=== PATIENT | female | born 1945 | race Caucasian/White ===

== ENCOUNTER 2017-09-13 13:18 | Outpatient (CLI) | payer MEDICARE ==
--- NOTE | 2017-09-13 18:12 | XRAY Report ---
RIGHT RIBS WITH FRONTAL CHEST: 09/13/2017 CLINICAL INDICATION: Chronic pain. FINDINGS: Frontal view of the chest and oblique views of the right ribs were obtained, with a marker at the site of maximal tenderness. There is no evidence of a displaced rib fracture. The cardiac silhouette is within normal limits. The lungs are clear. Postoperative changes are noted in the right breast. No effusion or pneumothorax is seen. IMPRESSION: NO EVIDENCE OF A DISPLACED RIGHT RIB FRACTURE. NO EVIDENCE OF ACUTE CARDIOPULMONARY DISEASE. TD: 09/13/2017 18:11
== END 2017-09-13 13:19 | disposition home or self-care (01) ==
LOC: DI 13:18
PROVIDERS: ATTEND Internal Medicine
DX: R07.81 Pleurodynia (principal); G89.29 Other chronic pain

== ENCOUNTER 2018-03-13 12:33 | Emergency (ER) | payer MEDICARE ==
[2018-03-13 13:06] LABS: BASOPHILS # (AUTO) 0.1 10^3/uL (0.0-0.1); BASOPHILS % (AUTO) 1.2 %; EOSINOPHILS # (AUTO) 0.2 10^3/uL (0.0-0.7); EOSINOPHILS % (AUTO) 3.8 %; HGB - HEMOGLOBIN 12.5 g/dL (12.0-16.0); LYMPHOCYTES # (AUTO) 1.8 10^3/uL (1.5-3.5); LYMPHOCYTES % (AUTO) 29.8 %; MEAN CORPUSCULAR HEMOGLOBIN 31.9 pg (27.0-31.0); MEAN CORPUSCULAR HGB CONC 34.5 g/dL (32.0-36.0); MEAN CORPUSCULAR VOLUME 92.5 fL (81.0-99.0); MEAN PLATELET VOLUME 7.7 fL (7.9-10.8); MONOCYTES # (AUTO) 0.6 10^3/uL (0.0-1.0); MONOCYTES % (AUTO) 9.2 %; NEUTROPHILS # (AUTO) 3.4 10^3/uL (1.5-6.6); PLT - PLATELET COUNT 248 10^3/uL (130-450); RED BLOOD COUNT 3.93 10^6/uL (4.20-5.40); RED CELL DISTRIBUTION WIDTH 13.4 % (12.0-15.0)
[2018-03-13 13:19] LABS: ALBUMIN 3.8 g/dL (3.2-5.5); ALBUMIN/GLOBULIN RATIO 1.2 (1.0-2.2); BILIRUBIN,TOTAL 0.8 mg/dL (0.2-1.0); CALCIUM 8.6 mg/dL (8.5-10.3); CREATININE 0.8 mg/dL (0.4-1.0)
--- NOTE | 2018-03-13 13:27 | XRAY Report ---
Reason: chest pain Procedure Date: 03/13/2018 Accession Number: [id number] / [id number] Procedure: XR - Chest 1 View X-Ray CPT Code: 91319 FULL RESULT: EXAM: CHEST RADIOGRAPHY EXAM DATE: 03/13/2018 01:17 PM. CLINICAL HISTORY: Chest pain. COMPARISON: 09/13/2017. TECHNIQUE: 1 view. FINDINGS: Lungs/Pleura: No focal consolidation. No edema. No pleural effusion. No pneumothorax. Mediastinum: The heart is mildly enlarged. Other: None. IMPRESSION: No acute findings. Mild cardiomegaly. RADIA
--- NOTE | 2018-03-13 13:29 | ED Physician Documentation ---
PD HPI CHEST PAIN - Stated complaint Stated Complaint: CHEST PX - Chief complaint Chief Complaint: Cardiac - History obtained from History obtained from: Patient - History of Present Illness Timing - onset: Yesterday Timing - details: Still present Pain level now: 6 Quality: Sharp Location: Left chest Worsened by: Inspiration, Movement, Palpation Associated symptoms: Cough Similar symptoms before: Has not had sx before - Additional information Additional information: The patient is a 73-year-old female who presents with left anterior chest pain that is exacerbated with movement of her left shoulder. The pain started early yesterday morning and has been persistent since that time. It is worse with movement, palpation, cough, or respiratory inspiration. It is better when lying still. She reports having a cough for nearly 2 months, and it has caused irritation in her throat. She denies fever, diaphoresis, shortness of breath, nausea or vomiting. She denies history of similar symptoms in the past. Review of Systems Constitutional: denies: Fever, Fatigue Ears: denies: Tinnitus/ringing Nose: denies: Congestion Throat: reports: Sore throat (Mildly irritated.) Cardiac: reports: Chest pain / pressure. denies: Palpitations Respiratory: reports: Cough. 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, Other HEENT: Tonsil/Adenoidectomy - Present Medications Home Medications: Ambulatory Orders Medication Instructions Recorded Confirmed Aspirin 1 tab DAILY PRN 09/12/14 09/12/14 Estrogens, Conjugated [Premarin] 09/12/14 09/12/14 Lisinopril 10 mg PO DAILY #30 tablet 09/12/14 Benzonatate [Tessalon] 100 mg PO TID #15 capsule 03/13/18 - Allergies Allergies/Adverse Reactions: Allergies Allergy/AdvReac Type Severity Reaction Status Date / Time Sulfa (Sulfonamide Allergy Severe Rash Verified 03/13/18 12:39 Antibiotics) cillins Allergy Intermediate Itching Uncoded 03/13/18 12:39 - Social History Does the pt smoke?: No Smoking Status: Never smoker Does the pt drink ETOH?: Yes PD ED PE NORMAL - Vitals Vital signs reviewed: Yes (systolic hypertension initially.) - General General: Alert and oriented X 3, Well developed/nourished, Other (Appears younger than her stated age.) - HEENT HEENT: Atraumatic, Pharynx benign - Neck Neck: No adenopathy, No JVD - Cardiac Cardiac: RRR, No murmur - Respiratory Respiratory: No respiratory distress, Clear bilaterally, Other (There is tenderness to palpation of the intercostal musculature on the left anterior and axillary chest. This reproduces her pain.) - Abdomen Abdomen: Soft, Non tender - Back Back: No CVA TTP - Derm Derm: No rash - Extremities Extremities: No edema, No calf tenderness / cord - Neuro Neuro: Alert and oriented X 3, No motor deficit, Normal speech Results - Vitals Vitals: Vital Signs - 24 hr 03/13/18 03/13/18 12:36 13:50 Temperature 36.5 C 36.8 C Heart Rate 64 63 Respiratory 18 18 Rate Blood Pressure 156/81 H 122/79 O2 Saturation 98 95 Oxygen O2 Source Room air - EKG (time done) 12:46 Rate: Rate (enter#) (62) Rhythm: NSR Castor: Normal Intervals: LBBB Compare to prior EKG: Unchanged from prior EKG Computer interpretation: Agree with computer - Labs Labs: Laboratory Tests 03/13/18 03/13/18 03/13/18 12:58 12:58 12:58 WBC 6.0 RBC 3.93 L Hgb 12.5 Hct 36.3 L MCV 92.5 MCH 31.9 H MCHC 34.5 RDW 13.4 Plt Count 248 MPV 7.7 L Neut # (Auto) 3.4 Lymph # (Auto) 1.8 [place] # (Auto) 0.6 Eos # (Auto) 0.2 Baso # (Auto) 0.1 Absolute Nucleated RBC 0.00 Nucleated RBC % 0.0 Sodium 136 Potassium 3.8 Chloride 100 L Carbon Dioxide 27 Anion Gap 9.0 BUN 12 Creatinine 0.8 Estimated GFR (MDRD) 71 L Glucose 105 H Calcium 8.6 Total Bilirubin 0.8 AST 34 ALT 23 Alkaline Phosphatase 108 Troponin I < 0.04 Total Protein 7.0 Albumin 3.8 Globulin 3.2 Albumin/Globulin Ratio 1.2 Lipase 33 - Rads (name of study) CXR Radiology: Prelim report reviewed, EMP read contemporaneously, See rad report (Mild cardiomegaly. No acute cardiopulmonary findings.) PD MEDICAL DECISION MAKING - ED course Complexity details: reviewed old records, reviewed results, re-evaluated patient, considered differential, d/w patient ED course: The patient's presentation is most consistent with costochondral chest pain. I doubt cardiac ischemia given her greater than 24 hours of symptoms with an unchanged EKG and normal cardiac enzymes. The underlying cause of her prolonged cough is unclear at this time. Chest x-ray reveals no acute cardiopulmonary abnormality. White blood cell count is normal. There is no evidence to suggest pneumonia, pneumothorax, and I doubt pulmonary embolus. Treatment in the emergency department included administration of ibuprofen 800 mg orally. She is being discharged with a prescription for Tessalon. I discussed with her the diagnosis, symptomatic treatment and outpatient follow- up, as well as potentially worrisome signs or symptoms that should prompt reevaluation in the emergency department. Departure - Departure Disposition: 01 Home, Self Care Clinical Impression: Costochondral chest pain, Left bundle branch block (LBBB) Condition: Stable Instructions: ED Chest Pain Costochondritis Follow-Up: Theron Kennedy MD [Provider Admit Priv/Credential] - Prescriptions: Benzonatate [Tessalon] 100 mg PO TID #15 capsule Comments: You can use ibuprofen, up to 800 mg 3 times daily for its anti-inflammatory effect. Take Tessalon as prescribed if needed for cough. Follow-up with your primary physician within 1-2 weeks. Call to schedule appointment. Return to the emergency department if you develop increasing chest pain, shortness of breath, or otherwise worsening symptoms. Discharge Date/Time: 03/13/18 13:57
[2018-03-13] MEDS ORDERED: IBUPROFEN 800 MG TABLET PO STA (13:42)
[2018-03-13 13:51] VITALS: BP 122/79
== END 2018-03-13 13:57 | disposition home or self-care (01) ==
LOC: ED 12:33
DX: R07.1 Chest pain on breathing (principal); I44.7 Left bundle-branch block, unspecified; Z79.82 Long term (current) use of aspirin
CPT/HCPCS: 36415; 71045; 80053; 83690; 84484; 85025; 93005; 99283; 99284; A9270

== ENCOUNTER 2018-08-22 13:27 | Outpatient (CLI) | payer MEDICARE, OTHER ==
--- NOTE | 2018-08-25 13:11 | DEXA Report ---
Reason: POSTMENOPAUSAL STATE Procedure Date: 08/22/2018 Accession Number: [id number] / [id number] Procedure: DEX - Dexa Spine and/or Hip CPT Code: FULL RESULT: EXAM: Dexa Spine and/or Hip DATE: 08/22/2018 2:05 PM CLINICAL HISTORY: POSTMENOPAUSAL STATE TECHNIQUE: Dual energy x-ray absorptiometry (DXA) was performed on a [employer] System. Regions measured are the AP Spine, femoral neck, and if needed forearm. COMPARISON: None. In accordance with the International Society for Clinical Densitometry (ISCD) guidelines, data from previous exams may be reanalyzed using current recommendations and techniques. This is done to allow a more accurate basis for comparison with the current study. FINDINGS: The data for the lumbar spine is as follows: BMD (g/cm/cm) T-SCORE Z-SCORE REGION L1 1.025 -0.9 0.3 L2 1.149 -0.4 0.7 L3 1.063 -1.1 0.0 L4 1.082 -1.0 0.2 TOTAL 1.081 -0.8 0.3 NOTE: All evaluable vertebrae are used for classification The data for the hip is as follows: BMD (g/cm/cm) T-SCORE Z-SCORE REGION Neck 0.845 -1.4 0.0 TOTAL 0.950 -0.5 0.7 NOTE: The femoral neck or total proximal femur, whichever is lowest, is used for classification. IMPRESSION: THE WHO CLASSIFICATION BASED ON THE INTERNATIONAL REFERENCE STANDARD IS OSTEOPENIA. THE FRACTURE RISK IS INCREASED. RECOMMENDATION: Patients with diagnosis of osteoporosis or osteopenia should have regular bone mineral density assessment. For those eligible for Medicare, routine testing is allowed once every 2 years. Testing frequency can be increased for patients who have rapidly progressing disease or for those who are receiving medical therapy to restore bone mass. COMMENT: World Health Organization (WHO) definitions for osteoporosis and osteopenia: NORMAL BMD: T-score at -1.0 or higher, fracture risk is low OSTEOPENIA BMD: T-score between -1.0 and -2.5, fracture risk is increased. OSTEOPOROSIS BMD: T-score at -2.5 or lower, fracture risk is high. National Osteoporosis Foundation recommends: 1. Obtain adequate dietary calcium (at least 1200 mg per day) and vitamin D (400-800 international units per day). 2. Participate, as appropriate, in regular weightbearing and muscle-strengthening exercise. 3. Avoid tobacco use and reduce alcohol and caffeine intake. 4. For more detailed information see the website at www.NOF.org.
== END 2018-08-22 13:28 | disposition home or self-care (01) ==
LOC: DI 13:27
PROVIDERS: ATTEND Internal Medicine
DX: M85.88 Other specified disorders of bone density and structure, other site (principal)
CPT/HCPCS: 77080

== ENCOUNTER 2021-05-03 08:40 | Emergency (ER) | payer MEDICARE, OTHER ==
[2021-05-03] MEDS ORDERED: DEXAMETHASONE 10 MG/ML VIAL PO STA (10:07)
[2021-05-03] MEDS ORDERED: CHERRY SYRUP 10 ML UDC PO ONE (10:07)
[2021-05-03] MEDS ORDERED: KETOROLAC 30 MG/ML VIAL IM STA (10:07)
--- NOTE | 2021-05-03 10:09 | ED Physician Documentation ---
PD HPI UPPER EXT INJURY - Stated complaint Stated Complaint: R SHOULDER PX - Chief complaint Chief Complaint: Ext Problem - History obtained from History obtained from: Patient - History of Present Illness Location: Right, Shoulder Type of injury: Other (over use making zana cards) Where injury occurred: Home Timing - onset: How many days ago (4) Timing - duration: Days (4) Timing - details: Gradual onset, Still present Improved by: Rest, Immobilization Worsened by: Moving, Palpating Associated symptoms: No: Weakness, Numbness, Tingling, Swelling Contributing factors: No: Anticoagulated Similar symptoms before: Has not had sx before Recently seen: Not recently seen - Additonal information Additional information: 76-year-old female has developed pain in her right shoulder that is become severe as time is gone on. She states that she has been using her right arm a lot making her [place] cards squeezing out some glitter out of a bottle and her arm is become more more painful. She is now unable to move her arm without significant pain right over the shoulder. She has not had this happen to her previous. 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, Other HEENT: Tonsil/Adenoidectomy - Present Medications Home Medications: Ambulatory Orders Medication Instructions Recorded Confirmed Aspirin 1 tab DAILY PRN 09/12/14 09/12/14 Estrogens, Conjugated [Premarin] 09/12/14 09/12/14 lisinopriL [Lisinopril] 10 mg PO DAILY #30 tablet 09/12/14 Benzonatate [Tessalon] 100 mg PO TID #15 capsule 03/13/18 - Allergies Allergies/Adverse Reactions: Allergies Allergy/AdvReac Type Severity Reaction Status Date / Time Sulfa (Sulfonamide Allergy Severe Rash Verified 03/13/18 12:39 Antibiotics) cillins Allergy Intermediate Itching Uncoded 03/13/18 12:39 - Social History Does the pt smoke?: No Smoking Status: Never smoker Does the pt drink ETOH?: Yes PD ED PE NORMAL - Vitals Vital signs reviewed: Yes (Hypertensive) - General General: Alert and oriented X 3, No acute distress, Well developed/nourished - HEENT HEENT: Atraumatic, PERRL, EOMI - Neck Neck: Supple, no meningeal sign, No bony TTP - Respiratory Respiratory: No respiratory distress - Derm Derm: Normal color, Warm and dry, No rash - Extremities Extremities: No deformity, No edema, Other (tenderness to the right deltoid anterior and posterior and marked pain with movement. 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 Rotator cuff calcific tendinopathy.), EMP read indepedently, See rad report PD MEDICAL DECISION MAKING - ED course Complexity details: reviewed results, re-evaluated patient, considered differential, d/w patient ED course: 76-year-old female with overuse of her right shoulder has pain in the right shoulder and she has calcific tendinitis on x-ray examination. She is administered dexamethasone 10 mg orally and 30 mg of Toradol IM. She has some improvement in her pain while she is here. Departure - Departure Disposition: 01 Home, Self Care Clinical Impression: Calcific tendonitis of right shoulder Condition: Stable Instructions: ED Tendinitis Calcific Follow-Up: Theron Kennedy MD [Primary Care Provider] - Comments: Lesly, today it appears you have some calcific tendinitis in your right shoulder. This is an overuse injury and reduction in the amount of use of your shoulder is imperative for healing. It is also imperative for you to have some movement of your shoulder and the recommendation is to remove the shoulder from the sling 4-5 times per day for range of motion. Discharge Date/Time: 05/03/21 11:17
--- NOTE | 2021-05-03 10:36 | XRAY Report ---
PROCEDURE: Shoulder 3 View RT INDICATIONS: pain no movement TECHNIQUE: 3 views of the shoulder were acquired. COMPARISON: None. FINDINGS: BONES: No acute, displaced fracture. The joint spaces are maintained. SOFT TISSUES: No appreciable pneumothorax. Calcific density overlies the humeral head, most consiste nt with calcific tendinopathy. IMPRESSION: 1.Rotator cuff calcific tendinopathy. Reviewed by: Junito Zelaya MD on 05/03/2021 10:34 AM [facility] Approved by: Junito Zelaya MD on 05/03/2021 10:34 AM [facility] Station ID: [id number]
[2021-05-03 11:17] VITALS: BP 150/62
== END 2021-05-03 11:17 | disposition home or self-care (01) ==
LOC: ED 08:40
DX: M75.31 Calcific tendinitis of right shoulder (principal)
CPT/HCPCS: 73030; 96372; 99283; A9270

== ENCOUNTER 2021-10-12 06:45 | Outpatient (CLI) | payer MEDICARE, OTHER ==
--- NOTE | 2021-10-12 10:42 | Ultrasound Report ---
PROCEDURE: Abdomen Complete INDICATIONS: RIGHT UPPER QUAD PAIN, RIGHT KNEE PAIN TECHNIQUE: Real-time scanning was performed of the abdominal and retroperitoneal organs, with image documentatio n. COMPARISON: None. FINDINGS: Liver: Normal size of the liver. Diffusely increased hepatic parenchymal echogenicity. No focal hepat ic mass. Gallbladder: Normally distended gallbladder. No wall thickening or pericholecystic fluid. No sludge o r gallstone. Biliary ducts: Normal caliber intrahepatic and extrahepatic biliary ducts Pancreas: Visualized porti ons of the pancreas are sonographically normal. Spleen: Spleen is normal in size and homogeneous in echotexture. Kidneys: Normal size and appearance of both kidneys. Aorta: Visualized aorta is normal in caliber at less than 3 cm. Iliacs: Obscured by bowel gas. IVC: Intrahepatic inferior vena cava is patent. Miscellaneous: No free abdominal fluid. IMPRESSION: Increased hepatic parenchymal echogenicity which most likely represents hepatic steatosis although ot her diffuse hepatocellular disorder such as hepatitis could cause a similar appearance. Reviewed by: George Rueda MD on 10/12/2021 10:41 AM PDT Approved by: George Rueda MD on 10/12/2021 10:41 AM PDT Station ID: [id number]
--- NOTE | 2021-10-12 15:47 | XRAY Report ---
PROCEDURE: Knee 3 View RT INDICATIONS: RIGHT UPPER QUAD PAIN, RIGHT KNEE PAIN TECHNIQUE: 3 views of the right knee(s) were acquired. COMPARISON: None. FINDINGS: Bones: No fractures or dislocations. No suspicious bony lesions. Moderate tricompartmental arthrit ic change slightly more prominent medially. Minimal paratracheal or osteophytes are present. No erosi ons. Soft tissues: No joint effusion. No suspicious soft tissue calcifications. IMPRESSION: Tricompartmental arthritic changes above. Reviewed by: Mehnaz Sweeney MD on 10/12/2021 3:45 PM PDT Approved by: Mehnaz Sweeney MD on 10/12/2021 3:45 PM PDT Station ID: [id number]
== END 2021-10-12 06:46 | disposition home or self-care (01) ==
LOC: DI 06:45
PROVIDERS: ATTEND Internal Medicine
DX: R10.11 Right upper quadrant pain (principal); M17.11 Unilateral primary osteoarthritis, right knee

== ENCOUNTER 2022-05-22 18:21 | Outpatient (CLI) | payer MEDICARE, OTHER ==
--- NOTE | 2022-05-23 11:59 | XRAY Report ---
PROCEDURE: Lumbar Spine 2 View INDICATIONS: LUMBAR BACK PAIN TECHNIQUE: 3 views of the lumbar spine were acquired. COMPARISON: None. FINDINGS: Bones: 5 [id number] vertebrae are present. Mild left convexity curvature centered at L3. Mild m ultilevel degenerative changes with disc height loss, endplate spurring, and facet arthropathy. No vertebral body compression fractures. No suspicious bony lesions. Soft tissues: Overlying bowel gas pattern is normal. No suspicious soft tissue calcifications. IMPRESSION: 1. No acute lumbar spine fracture visualized radiographically. 2. Mild multilevel degenerative changes of the lumbar spine. Reviewed by: Kameron Phan MD on 05/23/2022 11:57 AM PST Approved by: Kameron Phan MD on 05/23/2022 11:57 AM PST Station ID: [id number]
== END 2022-05-22 18:22 | disposition home or self-care (01) ==
LOC: DI.S 18:21
PROVIDERS: ATTEND Registered Nurse
DX: M47.816 Spondylosis without myelopathy or radiculopathy, lumbar region (principal)

== ENCOUNTER 2022-06-02 12:53 | Emergency (ER) | payer MEDICARE, OTHER ==
--- OUTSIDE RECORDS SUMMARY | 2022-06-02 13:19 | EXTERNAL MEDICAL SUMMARY RPT | Continuity of Care Document ---
:1945 Author Organization [facility] Address [address] [place] [address] Phone Care Team Providers Name Role Phone Unavailable Unavailable Unavailable Naina Guzman Robert Unavailable Unavailable Ge Patient Registrar, Demetrice Unavailable Unavai lable Allergies and Intolerances date description facility type (no date) SULFA [facility] (no date) AMOXICILLIN [facility] Encounters No information. Functional Status No information. Immunizations No information. Medications date description facility 2022-05-22 00:00 methylprednisolone [facility] 2022-05-22 00:00 hydrochlorothiazide [facility] 2022-05-23 00:00 hydrochlorothiazide [facility] 2022-05-24 00:00 hydrochlorothiazide [facility] 2022-05-22 00:00 lisinopril [facility] 2022-05-23 00:00 lisinopril [facility] 2022-05-24 00:00 lisinopril [facility] 2022-05-22 00:00 methocarbamol [facility] 2022-05-22 00:00 methylprednisolone [facility] 2022-05-22 00:00 methocarbamol [facility] 2022-05-22 00:00 methylprednisolone [facility] 2022-05-22 00:00 lisinopril [facility] 2022-05-23 00:00 lisinopril [facility] 2022-05-24 00:00 lisinopril [facility] 2022-05-22 00:00 DEXAMETHASONE SODIUM PHOSPHATE [facility] 2022-05-22 00:00 lisinopril [facility] 2022-05-23 00:00 lisinopril [facility] 2022-05-24 00:00 lisinopril [facility] 2022-05-22 00:00 methocarbamol [facility] 2022-05-22 00:00 lisinopril [facility] 2022-05-23 00:00 lisinopril [facility] 2022-05-24 00:00 lisinopril [facility] 2022-05-22 00:00 hydrochlorothiazide [facility] 2022-05-23 00:00 hydrochlorothiazide [facility] 2022-05-24 00:00 hydrochlorothiazide [facility] 2022-05-22 00:00 hydrochlorothiazide [facility] 2022-05-23 00:00 hydrochlorothiazide [facility] 2022-05-24 00:00 hydrochlorothiazide [facility] 2022-05-22 00:00 methocarbamol [facility] 2022-05-22 00:00 methylprednisolone [facility] 2022-05-22 00:00 KETOROLAC TROMETHAMINE [facility] 2022-05-22 00:00 hydrochlorothiazide [facility] 2022-05-23 00:00 hydrochlorothiazide [facility] 2022-05-24 00:00 hydrochlorothiazide [facility] Problems date description facility 2022-05-22 00:00 No current problems or disability [facility] 2022-05-22 00:00 Low back pain [facility] 2022-05-22 00:00 Lumbago [facility] 2022-05-22 00:00 Low back pain, unspecified [facility] Procedures date description facility 2022-05-22 00:00 Visit Code Hold [facility] 2022-05-22 00:00 XR LUMBAR SPINE 2 OR 3 VIEW [facility] Results/Labs No information. Social History date description facility 2022-05-22 00:00 Unknown if ever smoked [facility] 2022-05-23 00:00 Unknown if ever smoked [facility] 2022-05-24 00:00 Unknown if ever smoked [facility] Vital Signs date measurement value units 2022-05-22 00:00 BMI 27.88 kg/m2 2022-05-22 00:00 BP_diastolic 77 mmHg 2022-05-22 00:00 BP_systolic 174 mmHg 2022-05-22 00:00 heart_rate 60 /min 2022-05-22 00:00 height_metric 171.45 cm 2022-05-22 00:00 height_standard 67.5 in 2022-05-22 00:00 respiration_rate 18 /min 2022-05-22 00:00 temperature_metric 36.67 C 2022-05-22 00:00 temperature_standard 98 F 2022-05-22 00:00 weight_metric 81.65 kg 2022-05-22 00:00 weight_standard 180 lb
[2022-06-02] MEDS ORDERED: KETOROLAC 30 MG/ML VIAL IM STA (13:22)
--- NOTE | 2022-06-02 13:24 | ED Physician Documentation ---
History of Present Illness - Stated complaint Stated Complaint: BACK PX - Chief complaint Chief Complaint: Back Pain - Additonal information Additional information: 77-year-old female presents to the emergency department for evaluation of 2 w eeks left sided back pain without radiation. It began after she moved a coffee table and did some yoga the night before. However she does not remember anything hurting while doing yoga but the next morning when getting out of bed she found pain in her low back. She did go to our local walk-in clinic for which she received an injection of the medicine and was put on a 6-day Medrol Dosepak. She felt initially was improving her symptoms but since then the pain has continued. No fevers. No saddle anesthesia. No loss of bowel or bladder function. 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 Denies night sweats or weight loss. She has taken some ibuprofen and Tylenol intermittently without relief of symptoms. Pain is present really only when changing positions such as going from laying to standing or sitting to standing. No pain with ambulation History provided by patient. Good historian Review of Systems Constitutional: denies: Fever, Chills Respiratory: reports: Reviewed and negative GI: reports: Reviewed and negative : reports: Reviewed and negative Musculoskeletal: reports: Back pain. 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 TITLES: Hysterectomy, Other HEENT: Tonsil/Adenoidectomy - Present Medications Home Medications: Ambulatory Orders Medication Instructions Recorded Confirmed Aspirin 1 tab DAILY PRN 09/12/14 09/12/14 Estrogens, Conjugated [Premarin] 09/12/14 09/12/14 lisinopriL [Lisinopril] 10 mg PO DAILY #30 tablet 09/12/14 Benzonatate [Tessalon] 100 mg PO TID #15 capsule 03/13/18 - Allergies Allergies/Adverse Reactions: Allergies Allergy/AdvReac Type Severity Reaction Status Date / Time Sulfa (Sulfonamide Allergy Severe Rash Verified 06/02/22 13:07 Antibiotics) cillins Allergy Intermediate Itching Uncoded 06/02/22 13:07 - Social History Does the pt smoke?: No Smoking Status: Never smoker Does the pt drink ETOH?: Yes PD ED PE NORMAL - General General: Alert and oriented X 3, No acute distress - HEENT HEENT: PERRL - Cardiac Cardiac: RRR, No murmur - Respiratory Respiratory: No respiratory distress, Clear bilaterally - Abdomen Abdomen: Normal bowel sounds, Soft - Back Back: No CVA TTP, No spinal TTP, Other (Mild tenderness with palpation of the deep left lower paraspinous muscles. Negative straight leg bilaterally. Normal gait. Motor strength is 5 of 5. Patient is able to stand on heels and walk on tiptoes) - Derm Derm: Normal color, Warm and dry, No rash - Extremities Extremities: No deformity, No tenderness to palpate, Normal ROM s pain - Neuro Neuro: Alert and oriented X 3, biometrics analyst 2-12 intact Eye Opening: Spontaneous Motor: Obeys Commands Verbal: Oriented GCS Score: 15 Results - Vitals Vitals: Vital Signs - 24 hr 06/02/22 12:59 Temperature 37.1 C Heart Rate 93 Respiratory 18 Rate Blood Pressure 151/68 H O2 Saturation 99 Oxygen O2 Source Room air PD Medical Decision Making - ED course Complexity details: reviewed results, re-evaluated patient, considered differential, d/w patient ED course: This is a well-appearing 77-year-old female that presents to the emergency department for 2 weeks of left-sided low back pain without radiation. The pain is particularly worse when changing positions such as when going from sitting to standing or lying and getting out of bed. She denies any falls or trauma. She was seen at a local walk-in clinic and completed a 6-day course of methylprednisolone. Initially she felt her symptoms were getting better but they returned once she completed the steroids. She is had no fevers, saddle anesthesia or loss of bowel or bladder function. However she does have a history of previous cancers including Paget's disease as well and breast cancer. Given this history a CT of the lumbar spine was completed to evaluate for the possibility of lytic lesions as a cause of the pain. Reassuringly the CT scan completed today shows no acute worrisome disease, significant spinal canal stenosis, fractures or disc disease. Patient was free of abdominal pain and given lack of fevers or urinary symptoms, therefore I deferred labs. I suspect however she may have musculoskeletal pain given that it is present only when changing positions from sitting and lying to standing. I am recommending conservative [id number] analgesics with Tylenol and ibuprofen. I have advised her to follow closely with her primary care doctor for referral to PT. Given that she is recently completed a course of steroids will defer further administration of such. Otherwise emergent and worrisome return precautions were discussed Departure - Departure Disposition: Home, Self Care Clinical Impression: Left low back pain Qualifiers: Chronicity: acute Sciatica presence: without sciatica Qualified Code(s): M54.50 - Low back pain, unspecified Record reviewed to determine appropriate education?: Yes Instructions: ED Low Back Pain Injury Comments: Serenity you were seen today in the emergency department because you have had some pain in the left side of your back especially when you change positions like going from sitting to standing or getting out of bed. Because of your age and with your previous history of cancer we did do a CT scan of your lumbar spine. This reassuringly looks very good without findings to show lytic lesions, spinal deformity significant spinal canal stenosis or any broken bones. Most of your pain seems musculoskeletal and is really triggered when changing positions. I would like you to discuss this ED visit with your primary doctor and request a referral to physical therapy. If despite conservative therapy with 500 mg of tylenol taken 2-3 times a day or alternating with 500 mg of Tylenol also taken 2-3 times a day further imaging such as with an MRI can be considered. Return to the emergency department if you develop numbness in your genital area, lose control of your bowel or bladder function, have sudden weakness in your legs or have any significant fevers
--- NOTE | 2022-06-02 14:03 | CT Report ---
PROCEDURE: LUMBAR SPINE WO INDICATIONS: 2 weeks left low back pain TECHNIQUE: Noncontrast 3 mm thick sections acquired from the T12 level to the sacrum. Sagittal and coronal refo rmats were constructed. For radiation dose reduction, the following was used: automated exposure co ntrol, adjustment of mA and/or kV according to patient size. COMPARISON: Correlation made to plain film 05/22/2022. FINDINGS: Image quality: Excellent. Bones: There is normal bony alignment. No acute vertebral body compression fractures. No suspiciou s lytic or blastic bony lesions. Central spinal caliber is of normal overall caliber. No pars defec ts. Mild degenerative vacuum phenomenon at both sacroiliac joints. Mild lower lumbar facet arthropath y from L3 through S1. Normal disc spacing. No significant disc bulge to cause central canal or neural foraminal narrowing.. Soft tissues: No retroperitoneal masses or hematomas. Visualized aorta is normal in caliber. IMPRESSION: 1. No CT evidence of acute lumbar spine fracture or subluxation. 2. No significant disc herniation seen. Reviewed by: Maryellen Lopez MD on 06/02/2022 1:02 PM AKST Approved by: Maryellen Lopez MD on 06/02/2022 1:02 PM AKST Station ID: [id number]
[2022-06-02 14:54] VITALS: BP 150/78
== END 2022-06-02 14:54 | disposition home or self-care (01) ==
LOC: ED 12:53
DX: M54.50 Low back pain, unspecified (principal); Z85.3 Personal history of malignant neoplasm of breast
CPT/HCPCS: 96372; 99284

== ENCOUNTER 2022-10-23 07:00 | Outpatient (CLI) | payer MEDICARE, OTHER ==
--- NOTE | 2022-10-23 16:53 | XRAY Report ---
PROCEDURE: Shoulder 3 View LT INDICATIONS: LEFT SHOULDER PAIN TECHNIQUE: 3 views of the shoulder were acquired. COMPARISON: None. FINDINGS: Bones: No fractures or dislocations. No suspicious bony lesions. Visualized ribs appear intact. Soft tissues: Calcification within the rotator cuff. IMPRESSION: 1. No acute fracture. No osseous lesion. If symptoms and/or clinical suspicion for pathology continue , further assessment with repeat plain films, or advanced imaging (e.g., CT, MRI, or bone scan) is re commended for further assessment.. Next line 2. Calcific tendinitis of the rotator cuff. Reviewed by: Poncho Hendrix MD on 10/23/2022 4:52 PM PDT Approved by: Poncho Hendrix MD on 10/23/2022 4:52 PM PDT Station ID: [id number]
== END 2022-10-23 23:59 | disposition home or self-care (01) ==
LOC: DI.S 07:00
PROVIDERS: ATTEND Physician Assistant Medical
DX: S43.492A Other sprain of left shoulder joint, initial encounter (principal); M75.32 Calcific tendinitis of left shoulder

== ENCOUNTER 2023-07-08 07:34 | Day surgery (SDC) | payer MEDICARE, OTHER ==
[2023-07-08] MEDS: LACTATED RINGERS 1,000 ML IV ONE (07:38)
[2023-07-08] MEDS ORDERED: PROPOFOL 500 MG/50 ML 500 MG/50 ML VIAL ONE (08:20)
[2023-07-08] MEDS ORDERED: PHENYLEPHRINE HCL 0.5 MG/5 ML AMPULE ONE (08:30)
--- NOTE | 2023-07-08 08:40 | ANESTHESIA ---
Pre-Anesthesia VS, & Labs - Diagnosis screening - Procedure colonoscopy Vital Signs: Temp Pulse Resp BP Pulse Ox O2 Flow Rate 36.2 C L 84 18 138/72 H 97 07/08/23 07:41 07/08/23 07:41 07/08/23 07:41 07/08/23 07:41 07/08/23 07:41 Height: 5 ft 7 in Weight (kg): 83 kg Body Mass Index: 28.6 BMI Classification: Overweight - NPO Other (prep as directed) - Is Patient ?: No Home Medications and Allergies Home Medications: Ambulatory Orders hydroCHLOROthiazide [Hydrodiuril] 12.5 mg PO DAILY 07/05/23 hydroCHLOROthiazide [Hydrodiuril] 12.5 mg PO DAILY 07/05/23 Allergies/Adverse Reactions: Allergies Allergy/AdvReac Type Severity Reaction Status Date / Time Sulfa (Sulfonamide Allergy Severe Rash Verified 07/05/23 13:50 Antibiotics) Penicillins Allergy Itching Verified 07/05/23 13:50 Anes History & Medical History - Anesthetic History Anesthesia Complications: reports: No previous complications - Medical History Cardiovascular: reports: Hypertension, Other (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 Kennedy.) Pulmonary: reports: None Gastrointestinal: reports: None Urinary: reports: None Musculoskeletal: reports: Osteoarthritis Endocrine/Autoimmune: reports: None Skin: reports: None Smoking Status: Never smoker Psychosocial: reports: Alcohol History of Cancer?: No - Surgical History Eyes Ears Nose Throat (EENT): reports: Tonsil/Adenoidectomy Gynecologic: reports: Hysterectomy, Other Exam General: Alert, Oriented x3 Dental: WNL Mouth Opening: Greater than 4 Fingerbreadths Neck Mobility: Normal Mallampati classification: II Thyromental Distance: greater than 6 cm Respiratory: Lungs clear Cardiovascular: Regular rate, Normal S1, Normal S2 Plan Anesthesia Type: Total IV Consent for Procedure(s) Verified and Reviewed: Yes Code Status: Attempt Resuscitation ASA classification: 2-Mild systemic disease Is this case an emergency?: No
[2023-07-08] MEDS: LACTATED RINGERS 350 ML IV ONE (09:20)
[2023-07-08 09:22] VITALS: O2SAT 96
[2023-07-08 09:42] VITALS: BP 114/80
--- NOTE | 2023-07-08 15:17 | ANESTHESIA POST OP EVALUATION ---
Anesthesia Post Eval - Post Anesthesia Eval Vitals: Last Vital Signs Temp 36 C L 07/08/23 09:32 Pulse 74 07/08/23 09:32 Resp 16 07/08/23 09:32 BP 114/80 07/08/23 09:32 Pulse Ox 96 07/08/23 09:32 O2 Flow Rate CV Function Including HR & BP: Stable Pain Control: Satisfactory Nausea & Vomiting: Negative Mental Status: Baseline Respiratory Status: Airway Patent Hydration Status: Satisfactory Anesthesia Complications: None
== END 2023-07-08 07:35 | disposition home or self-care (01) ==
LOC: SDS 07:34
PROVIDERS: ATTEND Surgery
DX: Z12.11 Encounter for screening for malignant neoplasm of colon (principal); I10 Essential (primary) hypertension
CPT/HCPCS: G0121; J7120